=== PATIENT | male | born 1960 | race Caucasian/White ===

== ENCOUNTER 2019-05-30 22:02 | Emergency (ER) | payer SELFPAY ==
[~2019-05-30] VITALS: Ht 177.8 cm; Wt 56.4 kg
[~2019-05-30 22:02] MED LIST: FRSM40T PO; SPRN25T PO
[2019-05-30] MEDS ORDERED: EPINEPHrine 0.1 MG/ML 10 ML (HOSPIRA) SYR IJ ONE (22:04)
[2019-05-30] MEDS ORDERED: CALCIUM CHLORIDE 10% 1000 MG/10 ML VIAL IV ONE (22:04)
[2019-05-30 22:23] LABS: HEMOGLOBIN 7.8 G/DL (13.3-17.7); MEAN PLATELET VOLUME 9.8 FL (7.4-10.4); WHITE BLOOD COUNT 12.4 10^3/uL (4.3-11.0)
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
[2019-05-30 22:42] LABS: BILIRUBIN,DIRECT 0.6 MG/DL (0.0-0.3); BILIRUBIN,INDIRECT 0.4 MG/DL; CALCIUM 8.2 MG/DL (8.5-10.1); CREATININE SERUM 1.28 MG/DL (0.60-1.30); MAGNESIUM 2.4 MG/DL (1.8-2.4); PHOSPHORUS 7.1 MG/DL (2.3-4.7); POTASSIUM 4.2 MMOL/L (3.6-5.0); TOTAL PROTEIN 4.3 GM/DL (6.4-8.2)
[2019-05-31 01:42] VITALS: BP 0/0
--- NOTE | 2019-05-31 01:42 | NUR ---
PT MOVED TO ICU WHILE AWAITING DECISION FOR DONATION BY FAMILY. Addendum: 05/31/19 at 0154 by [facility] ICU ROOM 3 Addendum: 05/31/19 at 0654 by [facility] CARE OF BODY GIVEN TO DA MENDEZ.
--- OUTSIDE RECORDS SUMMARY | 2019-05-31 03:46 | XMS REPORT | Continuity of Care Document ---
Author Author [facility] Organization [facility] Address Unknown Phone Unavailable Care Team Providers Care Log Rafter Name Role Phone NO, LOCAL PHYSICIAN PP Unavailable Insurance Providers Payer Name Policy Number Subscriber Name Relationship Self Pay Collins Shearer 01 Self / Same As Patient Advance Directives Directive Response Recorded Date Advance Directives N 06/17/13 8:30pm Health Care Power of [employer] Staff N 06/17/13 8:30pm Organ Donor N 06/17/13 8:30pm Problems No Known Problems or Medical conditions. 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 Ref. Range Activated Partial Thromboplast Time June 17, 2013 5:30pm 33 SEC N 24-35 Alanine Aminotransferase (ALT/SGPT) June 17, 2013 5:30pm 46 U/L N 30-65 Albumin June 17, 2013 5:30pm 2.3 G/DL L 3.4-5.0 Alkaline Phosphatase June 17, 2013 5:30pm 102 U/L N 50-136 Ammonia June 17, 2013 5:30pm 38 UMOL/L H 11-32 Aspartate Amino Transf (AST/SGOT) June 17, 2013 5:30pm 64 U/L H 15-37 BUN/Creatinine Ratio June 17, 2013 5:30pm 8 - Basophils # (Auto) June 17, 2013 5:30pm 0.1 10^3/uL N 0.0-0.1 Basophils (%) (Auto) June 17, 2013 5:30pm 1 % N 0-10 Blood Urea Nitrogen June 17, 2013 5:30pm 9 MG/DL N 7-18 C-Reactive Protein June 17, 2013 5:30pm 0.4 MG/DL N 0.2-0.9 Calcium Level June 17, 2013 5:30pm 7.9 MG/DL L 8.5-10.1 Carbon Dioxide Level June 17, 2013 5:30pm 26 MMOL/L N 21-32 Chloride Level June 17, 2013 5:30pm 102 MMOL/L N 101-110 Creatinine June 17, 2013 5:30pm 1.2 MG/DL N 0.6-1.3 Eosinophils # (Auto) June 17, 2013 5:30pm 0.1 10^3/uL N 0.0-0.3 Eosinophils (%) (Auto) June 17, 2013 5:30pm 1 % N 0-10 Glucose Level June 17, 2013 5:30pm 128 MG/DL H 74-106 Hematocrit June 17, 2013 5:30pm 37 % L 40-54 Hemoglobin June 17, 2013 5:30pm 12.8 G/DL L 13.3-17.7 Lymphocytes # (Auto) June 17, 2013 5:30pm 1.8 X 10^3 N 1.0-4.0 Lymphocytes (%) (Auto) June 17, 2013 5:30pm 19 % N 12-44 Magnesium Level June 17, 2013 5:30pm 2.5 MG/DL H 1.8-2.4 Mean Corpuscular Hemoglobin June 17, 2013 5:30pm 35 PG H 25-34 Mean Corpuscular Hemoglobin Concent June 17, 2013 5:30pm 35 G/DL N 32-36 Mean Corpuscular Volume June 17, 2013 5:30pm 101 FL H 80-99 Mean Platelet Volume June 17, 2013 5:30pm 9.2 FL N 7.4-10.4 Monocytes # (Auto) June 17, 2013 5:30pm 1.0 X 10^3 N 0.0-1.0 Monocytes (%) (Auto) June 17, 2013 5:30pm 11 % N 0-12 Neutrophils # (Auto) June 17, 2013 5:30pm 6.3 X 10^3 N 1.8-7.8 Neutrophils (%) (Auto) June 17, 2013 5:30pm 68 % N 42-75 Platelet Count June 17, 2013 5:30pm 204 10^3/uL N 130-400 Potassium Level June 17, 2013 5:30pm 3.6 MMOL/L N 3.6-5.0 Prothrombin Time June 17, 2013 5:30pm 16.6 SEC H 12.2-14.7 Red Blood Count June 17, 2013 5:30pm 3.66 10^6/uL L 4.35-5.85 Red Cell Distribution Width June 17, 2013 5:30pm 13.0 % N 10.0-14.5 Sodium Level June 17, 2013 5:30pm 135 MMOL/L N 135-145 Total Bilirubin June 17, 2013 5:30pm 1.8 MG/DL H 0.0-1.0 Total Protein June 17, 2013 5:30pm 7.9 G/DL N 6.4-8.2 White Blood Count June 17, 2013 5:30pm 9.2 10^3/uL N 4.3-11.0 Estimat Glomerular Filtration Rate June 17, 2013 5:30pm > 60 - INR Comment June 17, 2013 5:30pm 1.4 N 0.8-1.4 Encounters Encounter Location Date/Time Discharged Inpatient [facility] 06/17/13 7:10pm Departed Emergency Room [facility] 12:00am
--- OUTSIDE RECORDS SUMMARY | 2019-05-31 03:47 | XMS REPORT | Continuity of Care Document ---
Author Organization Unknown Address Unknown Phone Unavailable Allergies There is no data. Medications There is no data. Problems Date Dx Coded Attending Type Code Diagnosis Diagnosed By 07/16/2013 TERI BATISTA MD 070.70 HEPATITIS C, UNSPEC 07/16/2013 TERI BATISTA MD 285.9 ANEMIA 07/16/2013 TERI BATISTA MD 424.1 AORTIC VALVE DISORDERS 07/16/2013 TERI BATISTA MD 789.59 OTHER ASCITES 07/16/2013 TERI BATISTA MD V05.3 [place] DX 07/16/2013 NICKY BRO DO 070.70 HEPATITIS C, UNSPEC 07/16/2013 NICKY BRO DO 285.9 ANEMIA 07/16/2013 NICKY BRO DO 424.1 AORTIC VALVE DISORDERS 07/16/2013 NICKY RBO DO 789.59 OTHER ASCITES 07/16/2013 NICKY BRO DO V05.3 [place] DX 08/19/2013 NICKY BRO DO 533.90 PEPTIC ULCER OF UNSPECIFIED SITE UNSPECIFIED ACUTE OR CHRONIC WITHOUT HEMORRHAGE OR PERFORATION WITHOUT OBSTRUCTION Procedures Code [place] [address] ROUTINE VENIPUNCTURE 07/16/2013 23766 CBC 07/17/2013 72003 CMP 07/17/2013 95224 MAGNESIUM 07/17/2013 [id number] GFR CALC (RESULT ONLY) 07/17/2013 66774 INR (IN HOUSE) 07/18/2013 PRO/CRE URINE PROTEIN TO CREATNINE RATIO 07/18/2013 73935 UA W/MICROSCOPY 07/18/2013 07639 HEP C PCR QUANT W/LINDSAY 07/23/2013 CARSON CHINCHILLA 07/23/2013 22736 GENOTYPE DNA HEPATITIS C 07/25/2013 Results Test Result Range Automated blood complete blood count (hemogram) panel - 05/30/19 22:13 Blood leukocytes automated count (number/volume) 12.4 10*3/uL 4.3-11.0 Blood erythrocytes automated count (number/volume) 2.23 10*6/uL 4.35-5.85 Venous blood hemoglobin measurement (mass/volume) 7.8 g/dL 13.3-17.7 Blood hematocrit (volume fraction) 25 % 40-54 Automated erythrocyte mean corpuscular volume 110 [foz_us] 80-99 Automated erythrocyte mean corpuscular hemoglobin (mass per erythrocyte) 35 pg 25-34 Automated erythrocyte mean corpuscular hemoglobin concentration measurement (mass/volume) 32 g/dL 32-36 Automated erythrocyte distribution width ratio 13.0 % 10.0- 14.5 Automated blood platelet count (count/volume) 60 10*3/uL 130- 400 Automated blood platelet mean volume measurement 9.8 [foz_us] 7.4-10.4 Liver function panel (serum or plasma alk phos, alb, total and direct bili, total protein, ALT, AST) - 05/30/19 22:13 Serum or plasma total bilirubin measurement (mass/volume) 1.0 mg/dL 0.1-1.0 Serum or plasma alkaline phosphatase measurement (enzymatic activity/volume) 142 U/L 40-136 Serum or plasma aspartate aminotransferase measurement (enzymatic activity/volume) 83 U/L 5-34 Serum or plasma alanine aminotransferase measurement (enzymatic activity/volume) 45 U/L 0-55 Serum or plasma protein measurement (mass/volume) 4.3 g/dL 6.4-8.2 Serum or plasma albumin measurement (mass/volume) 2.0 g/dL 3.2-4.5 Bilirubin direct 0.6 mg/dL 0.0-0.3 Serum or plasma indirect bilirubin measurement (mass/volume) 0.4 mg/dL NRG Whole blood basic metabolic panel - 05/30/19 22:13 Serum or plasma sodium measurement (moles/volume) 144 mmol/L 135-145 Serum or plasma potassium measurement (moles/volume) 4.2 mmol/L 3.6-5.0 Serum or plasma chloride measurement (moles/volume) 109 mmol/L 98-107 Carbon dioxide 10 mmol/L 21-32 Serum or plasma anion gap determination (moles/volume) 25 mmol/L 5-14 Serum or plasma urea nitrogen measurement (mass/volume) 12 mg/dL 7-18 Serum or plasma creatinine measurement (mass/volume) 1.28 mg/dL 0.60-1.30 Serum or plasma urea nitrogen/creatinine mass ratio 9 NRG Serum or plasma creatinine measurement with calculation of estimated glomerular filtration rate 58 NRG Serum or plasma glucose measurement (mass/volume) 122 mg/dL 70-105 Serum or plasma calcium measurement (mass/volume) 8.2 mg/dL 8.5-10.1 Serum or plasma phosphate measurement (mass/volume) - 05/30/19 22:13 Serum or plasma phosphate measurement (mass/volume) 7.1 mg/dL 2.3-4.7 Magnesium - 05/30/19 22:13 Magnesium 2.4 mg/dL 1.8-2.4 Serum or plasma troponin i.cardiac measurement (mass/volume) - 05/30/19 22:13 Serum or plasma troponin i.cardiac measurement (mass/volume) 0.064 ng/mL <0.028 Serum or plasma ethanol measurement (mass/volume) - 05/30/19 22:13 Serum or plasma ethanol measurement (mass/volume) 129 mg/dL <10 Serum or plasma lithium measurement (moles/volume) - 05/30/19 22:13 BNP PT 272.0 pg/mL <100.0 Blood lactic acid measurement (moles/volume) - 05/30/19 22:23 Blood lactic acid measurement (moles/volume) > mmol/L 0.50- 2.00 Encounters ACCT No. Visit Date/Time Discharge Status Pt. Type Provider Facility Loc./Unit Complaint [id number] 06/17/2013 19:10:00 06/20/2013 17:20:00 DIS Inpatient [id number] 05/30/2019 22:24:00 Document Registration [id number] 08/19/2013 15:53:00 08/19/2013 23:59:59 CLS Outpatient NICKY BRO DO [id number] 07/18/2013 11:13:00 07/18/2013 23:59:59 CLS Outpatient TERI BATISTA MD
== END 2019-05-30 22:30 | disposition expired ==
LOC: EDUNIT# 22:02 → ER 22:03
DX: I46.9 Cardiac arrest, cause unspecified (principal); K92.2 Gastrointestinal hemorrhage, unspecified
CPT/HCPCS: 31500; 36415; 36680; 80048; 80076; 80320; 83605; 83735; 83880; 84100; 84484; 85027